=== PATIENT | female | born 1990 | race Caucasian/White ===

== ENCOUNTER 2018-08-07 04:42 | Emergency (ER) | payer OTHER ==
--- NOTE | 2018-08-07 04:51 | EDM.PDOC ---
ED HPI GENERAL MEDICAL PROBLEM - General Chief Complaint: Headache Stated Complaint: migraine Time Seen by Provider: 08/07/18 04:45 Source of Information: Reports: Patient History Limitations: Reports: No Limitations - History of Present Illness INITIAL COMMENTS - FREE TEXT/NARRATIVE: Patient presents to the ED with complaints of headache since 8 pm last evening. It is described as pressure to the upper part of her head. Denies throbbing. Some nausea. Bright lights and noise makes headache more intense. Does have history of HTN and seizures. Does have history of being on lisinopril. Primary provider is Damir Martinez at [facility]. She denies chest or neck pain, no shortness of breath, no abdominal pain. Has ibs and has chronic diarrhea. No blood in urine or stool. Denies drug or alcohol use. Denies smoking. Onset Date: 08/06/18 Onset Time: 20:00 Duration: Getting Worse Location: Reports: Head Quality: Reports: Ache, Pressure Severity: Moderate Associated Symptoms: Reports: Nausea/Vomiting - Related Data Allergies Allergy/AdvReac Type Severity Reaction Status Date / Time Penicillins Allergy Hives Verified 08/07/18 04:43 Home Meds: Home Meds Erenumab-Aooe [Aimovig Autoinjector] 70 mg SQ ASDIRECTED 08/07/18 [History] Lisinopril 1 tab PO DAILY 08/07/18 [History] Venlafaxine HCl [Venlafaxine ER] 1 tab PO DAILY 08/07/18 [History] ED ROS GENERAL - Review of Systems Review Of Systems: See Below Constitutional: Reports: No Symptoms HEENT: Reports: No Symptoms Respiratory: Reports: No Symptoms Cardiovascular: Reports: No Symptoms Endocrine: Reports: No Symptoms GI/Abdominal: Reports: Diarrhea, Nausea : Reports: No Symptoms Musculoskeletal: Reports: No Symptoms Skin: Reports: No Symptoms Neurological: Reports: Headache Psychiatric: Reports: No Symptoms Hematologic/Lymphatic: Reports: No Symptoms Immunologic: Reports: No Symptoms - Physical Exam Exam: See Below Exam Limited By: No Limitations General Appearance: Alert, WD/WN, Moderate Distress Eye Exam: Bilateral Eye: EOMI, Normal Inspection, PERRL Ears: Normal TMs Nose: Normal Inspection, Normal Mucosa, No Blood Throat/Mouth: Normal Inspection, Normal Lips, Normal Teeth, Normal Gums, Normal Oropharynx, Normal Voice, No Airway Compromise Head Exam: Atraumatic, Normocephalic, Scalp Tenderness Neck: Normal Inspection, Supple, Non-Tender, Full Range of Motion Respiratory/Chest: No Respiratory Distress, Lungs Clear, Normal Breath Sounds, No Accessory Muscle Use, Chest Non-Tender Cardiovascular: Normal Peripheral Pulses, Regular Rate, Rhythm, No Edema, No Gallop, No JVD, No Murmur, No Rub GI/Abdominal: Normal Bowel Sounds, Soft, Non-Tender, No Organomegaly, No Distention, No Abnormal Bruit, No Mass Neuro Exam (Abbreviated): Alert, Oriented, CN II-XII Intact, Normal Cognition, Normal Gait, Normal Reflexes, No Motor/Sensory Deficits Back Exam: Normal Inspection, Full Range of Motion, NT Extremities: Normal Inspection, Normal Range of Motion, Non-Tender, No Pedal Edema, Normal Capillary Refill Psychiatric: Normal Affect, Normal Mood Skin Exam: Warm, Dry, Intact, Normal Color, No Rash Course - Radiology Interpretation Free Text/Narrative:: CT of head negative for acute process Departure - Departure Time of Disposition: 06:21 Disposition: Home, Self-Care 01 Condition: Good Clinical Impression: Migraine, Hypertension - Discharge Information *PRESCRIPTION DRUG MONITORING PROGRAM REVIEWED*: Not Applicable *COPY OF PRESCRIPTION DRUG MONITORING REPORT IN PATIENT ROSARIO: Not Applicable Instructions: Recurrent Migraine Headache, [id number], Hypertension Additional Instructions: Plan 1. Stay well hydrated 2. Schedule a follow up appointment with Damir Martinez to address your hypertension 3. Keep a journal to see if you have any triggers for you migraines including to much caffeine, stress, anxiety, being tired 4. Your blood pressure may be causing your headaches and it is important that you address this with your primary 5. Please call if you have any additional questions or concerns - Problem List & Annotations (1) Hypertension SNOMED Code(s): 24010745 Code(s): I10 - ESSENTIAL (PRIMARY) HYPERTENSION Status: Acute Priority: Medium Current Visit: Yes Qualifiers: Hypertension type: unspecified Qualified Code(s): I10 - Essential (primary ) hypertension (2) Migraine SNOMED Code(s): 59664350 Code(s): G43.909 - MIGRAINE, UNSP, NOT INTRACTABLE, WITHOUT STATUS MIGRAINOSUS Status: Acute Priority: Medium Current Visit: Yes - Problem List Review Problem List Initiated/Reviewed/Updated: Yes - Assessment/Plan Assessment:: Migraine headache Hypertension Plan: Plan 1. Stay well hydrated 2. Schedule a follow up appointment with Damir Martinez to address your hypertension 3. Keep a journal to see if you have any triggers for you migraines including to much caffeine, stress, anxiety, being tired 4. Your blood pressure may be causing your headaches and it is important that you address this with your primary 5. Please call if you have any additional questions or concerns
[2018-08-07] MEDS: Ondansetron 4 MG/2 ML SDV IVPUSH ONE (05:03)
[2018-08-07] MEDS: diphenhydrAMINE 50 MG/ML SDV IVPUSH ONE (05:04)
[2018-08-07] MEDS: Sodium Chloride 0.9% 10 ML Syringe FLUSH PRN (05:04)
[2018-08-07] MEDS: Lactated Ringers 1,000 ML IV SCH (05:05)
[2018-08-07] MEDS: Enalaprilat 1.25 MG/ML SDV IVPUSH ONE (05:15)
[2018-08-07 06:06] LABS: CHLORIDE,CL 104 mmol/L (98-107); SODIUM,NA 142 mmol/L (136-145)
[2018-08-07 06:08] LABS: ANION GAP 13.9 mmol/L (10-20)
[2018-08-07] MEDS: Ketorolac 15 MG/ML SDV IVPUSH ONE (06:16)
--- NOTE | 2018-08-07 07:54 | CT ---
[id number] CT/CT Head WO IV EXAM: CT Head WO IV CLINICAL DATA: NEW HEADACHE,HYPERTENSION. COMPARISON STUDY: None FINDINGS: No intracranial hemorrhage, extra-axial fluid collection, mass, or acute ischemia. No hydrocephalus. Mild changes of paranasal sinusitis. No air-fluid levels. Mastoid air cells are clear. IMPRESSION: Normal examination of the brain. Mild paranasal sinusitis. Júnior Yeboah MD 08/07/18 0753 Thank you for allowing us to participate in the care of your patient.
== END 2018-08-07 06:35 | disposition home or self-care (01) ==
LOC: VM.ED 04:42
DX: G43.909 Migraine, unspecified, not intractable, without status migrainosus (principal); I10 Essential (primary) hypertension; Z79.899 Other long term (current) drug therapy; Z88.0 Allergy status to penicillin
CPT/HCPCS: 36415; 70450; 80053; 81001; 81025; 85025; 96361; 96372; 96374; 96375; 99284-25; J1200; J1885; J2405; J3230; J7120